=== PATIENT | male | born 1955 | race Caucasian/White ===

== ENCOUNTER 2021-01-16 09:50 | Inpatient (IN) | payer OTHER ==
[~2021-01-16] VITALS: Ht 172.7 cm; Wt 66.7 kg
[2021-01-16] VITALS (77 sets, daily range): BP systolic 134; BP diastolic 80; PULSE 87; TEMP 98.9; O2SAT 82–98
[2021-01-16 10:35] LABS: HEMATOCRIT 49.3 % (42.0-52.0); HEMOGLOBIN 16.8 g/dl (13.5-18.0); MEAN CELL VOLUME 87 fl (80.0-100.0); MEAN CORPUSCULAR HEMOGLOBIN 30 pg (27.0-31.0); MEAN CORPUSCULAR HGB CONC 34 g/dl (33.0-37.0); MEAN PLATELET VOLUME 9.9 fl (7.4-10.4); PLATELET COUNT 349 K/mm3 (130-400); RED BLOOD COUNT 5.64 M/mm3 (4.20-5.60); REDCELL DISTRIBUTION WIDTH-CV 14.7 % (11.5-14.5)
[2021-01-16 11:05] LABS: BAND 3 % (0-10); LYMPHOCYTE 10 % (20.0-51.0); NEUTROPHILS 85 % (42.0-75.2)
[2021-01-16 11:07] LABS: PLATELET ESTIMATE NORMAL (NORMAL)
[2021-01-16 11:16] LABS: COLLECTION METHOD CLEAN CATCH
[2021-01-16 11:16] LABS: ARTERIAL BLD GAS O2 SATURATION 93.5 % (92-100); ARTERIAL BLD GAS TCO2 CT 23.3; ARTERIAL BLOOD GAS BASE EXCESS 0.6 (-2-2); ARTERIAL BLOOD GAS HCO3 22.4 meq/L (22-26); ARTERIAL BLOOD GAS PCO2 29.1 mmHg (35-45); ARTERIAL BLOOD GAS PO2 64.7 mmHg (80-100); ARTERIAL BLOOD GAS pH 7.51 (7.35-7.45)
[2021-01-16 11:29] LABS: MUCOUS Present /lpf; PH 6 (5-8); SQUAMOUS EPITHELIAL None Seen /hpf; URINE APPEARANCE Hazy; URINE BACTERIA None Seen /hpf; URINE BILIRUBIN Negative (NEGATIVE); URINE BLOOD Negative (NEGATIVE); URINE COLOR Amber; URINE GLUCOSE Negative (NEGATIVE); URINE KETONE 1+ (NEGATIVE); URINE LEUKOCYTE ESTERASE Negative (NEGATIVE); URINE NITRATE Negative (NEGATIVE); URINE PROTEIN(semi-quant) 1+ (NEGATIVE); URINE RBC 0-2 /hpf; URINE UROBILINOGEN >=4.0 mg/dL (NEGATIVE)
[2021-01-16 11:37] LABS: ALANINE AMINOTRANSFERASE 55 U/L (4-49); ALBUMIN 2.7 gm/dL (3.5-5.0); ALKALINE PHOSPHATASE 59 U/L (50-136); ANION GAP 4 mmol/L (7-16); AST,SGOT 76 U/L (15-37); BLOOD UREA NITROGEN 16 mg/dL (9-20); CALCIUM 7.1 mg/dL (8.4-10.2); CARBON DIOXIDE 22 mmol/L (22-30); CHLORIDE 109 mmol/L (98-107); CREATININE, serum 0.69 (0.66-1.25); GLUCOSE 97 mg/dL (74-106); POTASSIUM 3.2 mmol/L (3.4-5.0); SODIUM 135 mmol/L (137-145); TOTAL PROTEIN 6.3 gm/dL (6.4-8.2)
[2021-01-16 12:13] LABS: TROPONIN-I < 0.012 ng/mL (0.000-0.035)
[2021-01-16 17:55] LABS: C-REACTIVE PROTEIN 4.2 mg/dL (0.0-0.9); MAGNESIUM 2.2 mg/dL (1.6-2.3)
[2021-01-16 21:27] LABS: ARTERIAL BLD GAS O2 SATURATION 97.2 % (92-100); ARTERIAL BLD GAS TCO2 CT 25.1; ARTERIAL BLOOD GAS BASE EXCESS 1.8 (-2-2); ARTERIAL BLOOD GAS HCO3 24.2 meq/L (22-26); ARTERIAL BLOOD GAS PCO2 31.9 mmHg (35-45); ARTERIAL BLOOD GAS PO2 89.1 mmHg (80-100)
--- NOTE | 2021-01-16 22:10 | NUR ---
CONTACTED PHARMACY FOR A DOSE OF REMDESAVIR, FOR THIS COVID POSITIVE PATIENT/ PHARMACIST STATED THEY COULD NOT BE IN CAUSE DOSES ARE UNDER LOCK AND NO URIBE UNTIL A.M.S ONLY TIMED LOCK
[2021-01-17] VITALS (788 sets, daily range): BP systolic 105–129; BP diastolic 68–89; PULSE 58–92; TEMP 97.6–99; O2SAT 84–100
[2021-01-17 05:19] LABS: HEMATOCRIT 48.2 % (42.0-52.0); HEMOGLOBIN 16.2 g/dl (13.5-18.0); MEAN CELL VOLUME 89 fl (80.0-100.0); MEAN CORPUSCULAR HEMOGLOBIN 30 pg (27.0-31.0); MEAN CORPUSCULAR HGB CONC 34 g/dl (33.0-37.0); MEAN PLATELET VOLUME 9.7 fl (7.4-10.4); PLATELET COUNT 283 K/mm3 (130-400); RED BLOOD COUNT 5.44 M/mm3 (4.20-5.60); REDCELL DISTRIBUTION WIDTH-CV 14.7 % (11.5-14.5)
[2021-01-17 05:32] LABS: ARTERIAL BLD GAS O2 SATURATION 97.4 % (92-100); ARTERIAL BLD GAS TCO2 CT 24.1; ARTERIAL BLOOD GAS BASE EXCESS 0.1 (-2-2); ARTERIAL BLOOD GAS HCO3 23.1 meq/L (22-26); ARTERIAL BLOOD GAS PCO2 33.2 mmHg (35-45); ARTERIAL BLOOD GAS pH 7.46 (7.35-7.45)
[2021-01-17 05:34] LABS: ALBUMIN 3.3 gm/dL (3.5-5.0); BILIRUBIN,TOTAL 0.9 mg/dL (0.0-1.0); CREATININE, serum 0.66 (0.66-1.25); MAGNESIUM 2.5 mg/dL (1.6-2.3); POTASSIUM 4.5 mmol/L (3.4-5.0); TOTAL PROTEIN 7.3 gm/dL (6.4-8.2)
[2021-01-17 05:50] LABS: BAND 1 % (0-10); BASOPHIL 1 % (0-2); LYMPHOCYTE 1 % (20.0-51.0); NEUTROPHILS 89 % (42.0-75.2); PLATELET ESTIMATE NORMAL (NORMAL)
--- NOTE | 2021-01-17 07:15 | NUR ---
Patient resting in bed; alert and oriented and cooperative during assessment. Patient reports breathing feels "better" while wearing the BIPAP. Reported a dry mouth. Assisted to take sips of water; tolerated well. Discussed possibility of eating with Dr. Rivero. Requested that we attempt Airvo for 30 min. If tolerating may have a light snack. VS stable at this time. Call light left within reach; will continue to monitor.
--- NOTE | 2021-01-17 10:45 | NUR ---
Patient had minimal urine out put overnight. Has not voided this shift. Discussed with hospitalist and will initiate IV fluids.
--- NOTE | 2021-01-17 11:08 | NUR ---
I spoke with pt per phone for the following information. Pt currently lives at home alone. He has not been and does not have any children. He has no DPOA established and is not interested at this time of establishing one. His mother is in a shelter at [place] but he does not know which one. Her name is Brenda Paniagua. He has a sister in [place]-Marianela Sarah but he does not have her contact information. He has another sister, Zoya, but he does not know her last name since she got and does not have her contact information. He currently does not have a PCP and has not been seen in a clinic/urgent care in many years. He does not have a pharmacy. Pt requested that I contact his employer-[employer]- and let him know that pt was in the hospital. I called [employer] at [phone] and notified them of pt's admission. Pt has no other living siblings and father in 70's.
--- NOTE | 2021-01-17 20:14 | NUR ---
Assessment complete and charted. Patient has cataract present to left eye. Denies pains. Denies needs. Call light in reach.
[2021-01-18] VITALS (585 sets, daily range): BP systolic 119–146; BP diastolic 74–94; PULSE 62–93; TEMP 97.4–98.7; O2SAT 85–100
[2021-01-18 06:47] LABS: HEMATOCRIT 46.2 % (42.0-52.0); HEMOGLOBIN 15.2 g/dl (13.5-18.0); MEAN CELL VOLUME 91 fl (80.0-100.0); MEAN CORPUSCULAR HEMOGLOBIN 30 pg (27.0-31.0); MEAN CORPUSCULAR HGB CONC 33 g/dl (33.0-37.0); MEAN PLATELET VOLUME 9.4 fl (7.4-10.4); PLATELET COUNT 362 K/mm3 (130-400); RED BLOOD COUNT 5.06 M/mm3 (4.20-5.60); REDCELL DISTRIBUTION WIDTH-CV 14.8 % (11.5-14.5)
[2021-01-18 06:58] LABS: BILIRUBIN,TOTAL 0.6 mg/dL (0.0-1.0); CALCIUM 8.2 mg/dL (8.4-10.2); CREATININE, serum 0.74 (0.66-1.25); MAGNESIUM 2.3 mg/dL (1.6-2.3); POTASSIUM 4.1 mmol/L (3.4-5.0); TOTAL PROTEIN 6.8 gm/dL (6.4-8.2)
--- NOTE | 2021-01-18 07:05 | NUR ---
Patient had uneventful night. Remains on bipap this AM. Call light in reach.
--- NOTE | 2021-01-18 07:27 | NUR ---
Report given to PAM Gaona
[2021-01-18 07:56] LABS: BAND 12 % (0-10); LYMPHOCYTE 8 % (20.0-51.0); NEUTROPHILS 71 % (42.0-75.2); PLATELET ESTIMATE NORMAL (NORMAL)
--- NOTE | 2021-01-18 08:45 | NUR ---
Awake and alert in bed; Denies any shortness of breath or pain. 02 88% on Air vo at 45L 50%. RT at bedside and increased settings to 55L 75%. Currenlty 92%. Provided breakfast tray. Call light left within reach; will continue to monitor.
--- NOTE | 2021-01-18 09:15 | NUR ---
On 01/17/2021, manager social media spoke with patient about durable power of workers compensation attorney for health care and that we were unable to secure location and contact patient's sisters and mother. Patient verbalized understanding the importance of establishing a durable power of workers compensation attorney due to seriousness of his covid illness. Patient stated his friend, Lane Cisse would help him by being his durable power of workers compensation attorney. Worker had [facility] locate Lane and he then called this worker and said he would gladly help patient by becoming the durable power of workers compensation attorney. On 01/17/2021, patient signed a durable power of workers compensation attorney naming Lane Cisse. On this date, worker contacted Lane and advised of the above information. Lane expressed interest in seeing patient if he can ever have visitors.
--- NOTE | 2021-01-18 09:19 | NUR ---
Lane Cisse's phone number is [phone].
--- NOTE | 2021-01-18 18:30 | NUR ---
Transfered up to medical floor on 15L oxymask. 2nd RN transported Airvo. Patient alert and oriented and in no distress upon arrival. Switched to Airvo on previous settings once in medical floor room.
--- NOTE | 2021-01-18 21:07 | NUR ---
Shift assessment completed. Patient alert and oriented. Patient currently on Airvo 55L/75%. Patient denies SOB or dyspnea at this time. Patient denies any pain or discomfort. VS stable. Patient ate 100% of dinner. Denies N/V or diarrhea. All scheduled meds given per AUG. Call light within reach. Will continue to monitor.
[2021-01-19 00:20] VITALS: BP 126/72; PULSE 71; TEMP 98.6
[2021-01-19 03:46] VITALS: BP 122/65; PULSE 69; TEMP 97.9
[2021-01-19 08:00] VITALS: BP 135/71; PULSE 87; TEMP 98.8
[2021-01-19 09:29] LABS: BASO % 0.1 % (0.0-2.0); EOS % 0.1 % (0-4.0); GRAN # 13.8 (1.4-6.5); GRAN % 86.5 % (42.2-75.2); HEMATOCRIT 44.6 % (42.0-52.0); HEMOGLOBIN 14.7 g/dl (13.5-18.0); LYMPH # 1.4 (1.2-3.4); LYMPH % 8.8 % (20.0-51.0); MEAN CELL VOLUME 90 fl (80.0-100.0); MEAN CORPUSCULAR HEMOGLOBIN 30 pg (27.0-31.0); MEAN CORPUSCULAR HGB CONC 33 g/dl (33.0-37.0); MEAN PLATELET VOLUME 9.3 fl (7.4-10.4); MONO # 0.6 (0.1-0.6); MONO % 3.4 % (1.7-9.3); PLATELET COUNT 358 K/mm3 (130-400); RED BLOOD COUNT 4.97 M/mm3 (4.20-5.60); REDCELL DISTRIBUTION WIDTH-CV 14.6 % (11.5-14.5)
[2021-01-19 09:36] LABS: CALCIUM 8.2 mg/dL (8.4-10.2); CREATININE, serum 0.63 (0.66-1.25); POTASSIUM 3.9 mmol/L (3.4-5.0)
--- NOTE | 2021-01-19 10:34 | NUR ---
0700 PT RECEIVED RESTING IN BED. NO S/S OF DISTRESS NOTICED. OXYGEN IN PLACE. PT DENIES HAVING PAIN. COMFORT MEASURES IN PLACE. CALL-LIGHT IN REACH. BED IN LOW POSITION. ISOLATION PRECAUTION MAINTAINED. WILL CONTINUE TO MONITOR. 0800 V/S STABLE. PT ORDERED HIS MEAL. 0900 MEDICATIONS ADMINISTERED ORDERED. PT ATE HIS MEAL. WILL CONTINUE TO MONITOR.
[2021-01-19 12:00] VITALS: BP 143/72; PULSE 94; TEMP 98.8
[2021-01-19 16:00] VITALS: BP 132/66; PULSE 94; TEMP 99
[2021-01-19 20:24] VITALS: BP 130/65; PULSE 94; TEMP 98.9
[2021-01-20 00:34] VITALS: BP 122/78; PULSE 67; TEMP 97.9
[2021-01-20 04:10] VITALS: BP 130/74; PULSE 80; TEMP 98.4
--- NOTE | 2021-01-20 06:24 | NUR ---
PATIENT RESTING IN BED IN NO DISTRESS OXYGEN IN PLACE. DENIES ANY DISCOMFORT. VSS. ISOLATION PRECAUSTION MENTAINED. CALL LIGHT WITHIN REACH. BED LOW AND LOCKED. WILL CONTINUE TO MONITOR.
[2021-01-20 09:19] LABS: HEMATOCRIT 47.6 % (42.0-52.0); HEMOGLOBIN 15.5 g/dl (13.5-18.0); MEAN CELL VOLUME 91 fl (80.0-100.0); MEAN CORPUSCULAR HEMOGLOBIN 30 pg (27.0-31.0); MEAN CORPUSCULAR HGB CONC 33 g/dl (33.0-37.0); MEAN PLATELET VOLUME 9.2 fl (7.4-10.4); PLATELET COUNT 315 K/mm3 (130-400); RED BLOOD COUNT 5.24 M/mm3 (4.20-5.60); REDCELL DISTRIBUTION WIDTH-CV 14.6 % (11.5-14.5)
[2021-01-20 09:20] VITALS: BP 134/61; PULSE 89; TEMP 98.8
--- NOTE | 2021-01-20 09:20 | NUR ---
PT PLEASANT, AOX4, DENIES SOB/N/V/D/PAIN. REPORTS A PRODUCTIVE COUGH. MEDICATIONS GIVEN, ICE WATER BROUGHT IN FOR PT, PT ATE BREAKFAST, ASSESSMENT PERFORMED, NO OTHER NEEDS.
[2021-01-20 09:34] LABS: BILIRUBIN,TOTAL 0.6 mg/dL (0.0-1.0); CALCIUM 8.2 mg/dL (8.4-10.2); CREATININE, serum 0.7 (0.66-1.25); MAGNESIUM 2.1 mg/dL (1.6-2.3); POTASSIUM 3.9 mmol/L (3.4-5.0); TOTAL PROTEIN 7.1 gm/dL (6.4-8.2)
[2021-01-20 10:53] LABS: BAND 1 % (0-10); LYMPHOCYTE 8 % (20.0-51.0); NEUTROPHILS 89 % (42.0-75.2)
[2021-01-20 10:54] LABS: HYPOCHROMIA 1+; PLATELET ESTIMATE NORMAL (NORMAL)
[2021-01-20 12:13] VITALS: BP 122/98; PULSE 95; TEMP 98.6
[2021-01-20 16:15] VITALS: BP 142/75; PULSE 99; TEMP 97.6
--- NOTE | 2021-01-20 18:10 | NUR ---
PT PLEASANT, AOX4, TOOK ALL MEDICATION, VITALS TAKEN, NO OTHER NEEDS, ON AIRVO, TOLERATING IT WELL
[2021-01-20 19:46] VITALS: BP 110/66; PULSE 84; TEMP 98.1
--- NOTE | 2021-01-20 21:04 | NUR ---
PATIENT ASSESSED. RESTING IN BED REPORT FEELING BETTER TODAY. CONTINUE ON AIRVO, NO RESPIRATORY DISTRESS NOTED. DENIES PAIN OR ANY DISCOMFORT. CALL WITHIN REACH. BED LOW AND LOCKED. NO CONCERN AT THIS TIME. WILL CONTINUE TO MONITOR.
[2021-01-21] VITALS (7 sets, daily range): BP systolic 114–136; BP diastolic 65–76; PULSE 65–103; TEMP 97.9–98.6
--- NOTE | 2021-01-21 06:46 | NUR ---
PT AWAKE IN BED WITH AIRVO IN PLACE. REQUESTING FOR URINAL TO BE EMPTIED
--- NOTE | 2021-01-21 07:24 | NUR ---
PT PLEASANT, AOX4, DENIES PAIN/SOB, ASSESSMENT PERFORMED, VITALS TAKEN, MEDICATIONS GIVEN, FRESH ICE WATER BROUGHT IN, BREAKFAST ORDERED, NO OTHER NEEDS
--- NOTE | 2021-01-21 17:08 | NUR ---
PT AOX4, PLEASANT, REPORTS FEELING MUCH BETTER, INDEPENDENT IN ROOM, PT REPORTS ONLY FEELING SOB FOR A COUPLE MINUTES BEFORE RETURNING TO BASELINE, REMDESIVIR GIVEN WITH OTHER MEDICATIONS. PT DENIES PAIN/N/V/D. PT HAS GOOD ORAL INTAKE, NO OTHER NEEDS
--- NOTE | 2021-01-21 20:30 | NUR ---
Initial shift assessment done- denies pain, Denies SOB when in rest- states has SOB with exertion. On Airvo 50L/63%. Pleasant, alert/oriented- states feels like he is getting better, snack given, no other requests. VSS
[2021-01-22 04:30] VITALS: BP 129/72; PULSE 73; TEMP 98.1
--- NOTE | 2021-01-22 04:51 | NUR ---
Quiet night- no requests, denies pain at this time-seems in good spirits,talkative. VSS, sats 94-95% on Airvo
[2021-01-22 07:27] VITALS: BP 127/74; PULSE 90; TEMP 98.7
--- NOTE | 2021-01-22 11:10 | NUR ---
Scheduled medications given. Shift assessment preformed. Patient currently requiring 55L of O2 via airvo. Patient A&O. Denies and pain, discomfort, N/V/D, or further needs at this time. VSS. Call light in reach.
[2021-01-22 11:21] VITALS: BP 121/74; PULSE 93; TEMP 98.9
--- NOTE | 2021-01-22 11:38 | NUR ---
The patient remains on 50 liters of oxygen, via airvo. GENE contacted the patient to follow up. The patient states that he is doing okay. He states that his friend, Lane, will be coming up here to excelsior picker his keys. GENE notified the patient's RN. GENE to continue to follow.
[2021-01-22 16:00] VITALS: BP 130/71; PULSE 90; TEMP 98.3
--- NOTE | 2021-01-22 19:34 | NUR ---
Patient had an ok day. Patient still requiring 50 L of O2 via airvo. Patient has denies any pain, discomfort, N/V/D, and is afebrile. Denies any further needs at this time. VSS. Call light in reach.
[2021-01-22 20:51] VITALS: BP 125/81; PULSE 90; TEMP 97.7
[2021-01-22 23:52] VITALS: BP 133/88; PULSE 81; TEMP 97.8
[2021-01-23 03:50] VITALS: BP 123/71; PULSE 76; TEMP 97.6
[2021-01-23 07:02] LABS: BASO % 0.2 % (0.0-2.0); GRAN # 9.2 (1.4-6.5); GRAN % 83.6 % (42.2-75.2); HEMATOCRIT 48.2 % (42.0-52.0); HEMOGLOBIN 15.6 g/dl (13.5-18.0); LYMPH # 1.1 (1.2-3.4); LYMPH % 9.8 % (20.0-51.0); MEAN CELL VOLUME 91 fl (80.0-100.0); MEAN CORPUSCULAR HEMOGLOBIN 30 pg (27.0-31.0); MEAN CORPUSCULAR HGB CONC 32 g/dl (33.0-37.0); MEAN PLATELET VOLUME 9.5 fl (7.4-10.4); MONO # 0.6 (0.1-0.6); MONO % 5.6 % (1.7-9.3); PLATELET COUNT 346 K/mm3 (130-400); RED BLOOD COUNT 5.29 M/mm3 (4.20-5.60); REDCELL DISTRIBUTION WIDTH-CV 14.5 % (11.5-14.5)
[2021-01-23 07:20] LABS: C-REACTIVE PROTEIN 1.1 mg/dL (0.0-0.9); CALCIUM 8.2 mg/dL (8.4-10.2); CREATININE, serum 0.65 (0.66-1.25); MAGNESIUM 2.1 mg/dL (1.6-2.3)
--- NOTE | 2021-01-23 09:26 | NUR ---
Pt awake upon entry to room, talkative. No C/O pain at this time. Shift assessments complete, left Pt call light in reach, bed in lowest position.
[2021-01-23 09:53] VITALS: BP 132/75; PULSE 91; TEMP 97.9
[2021-01-23 13:01] VITALS: BP 134/78; PULSE 95; TEMP 97.9
[2021-01-23 17:21] VITALS: BP 120/72; PULSE 93; TEMP 98.3
--- NOTE | 2021-01-23 20:21 | NUR ---
PT RESTING COMFOTABLY IN BED. PT ON AIRVO 40L/55%. EVENING MEDICATIONS GIVEN. PT HAS NO COMPLAINTS OF PAIN AT THIS TIME. STOMACH APPEARS DISTENDED AND FIRM. BOWEL SOUNDS ACTIVE IN ALL FOUR QUADRANTS. LUNG SOUNDS OF COARSE CRACKLES UPON AUSCULTATION. CALL LIGHT WITHIN REACH. WILL CONTINUE TO MONITOR.
[2021-01-23 20:27] VITALS: BP 138/73; PULSE 106; TEMP 98
[2021-01-24] VITALS (7 sets, daily range): BP systolic 123–139; BP diastolic 71–81; PULSE 17–97; TEMP 97.5–98.2
[2021-01-24 07:11] LABS: C-REACTIVE PROTEIN 0.9 mg/dL (0.0-0.9); CALCIUM 8.2 mg/dL (8.4-10.2); CREATININE, serum 0.69 (0.66-1.25); MAGNESIUM 2.2 mg/dL (1.6-2.3)
--- NOTE | 2021-01-24 08:27 | NUR ---
Pt awake upon entry, no C/O pain at this time. Talkative. Currently on high flow nasal canula @ 6 LPM. Shift assessment complete, left Pt call light in reach, needs met.
[2021-01-25 04:25] VITALS: BP 127/69; PULSE 87; TEMP 97.9
[2021-01-25 08:00] VITALS: BP 123/72; PULSE 111; TEMP 97.7
--- NOTE | 2021-01-25 08:00 | NUR ---
Patient sitting up in bed watching TV. A&Ox4. VSS 3L NC O2, no reported SOB. IV CDI. Denies pain and discomfort. Is hoping to go home today. Droplet/contact precautions in place. Call light within reach
[2021-01-25] MEDS ORDERED: RT Albuterol HFA MDI IH (11:00)
--- NOTE | 2021-01-25 15:29 | NUR ---
The hospitalist is ready to d/c the patient today. An exercise oximetry was ordered. RT notified SW that the patient qualified for 4 liters of oxygen with ambulation. SW contacted the patient to inform and review d/c plan. The patient is self pay and will need to go through [facility] for the oxygen. The patient was agreeable to this. The patient reports that he will also need a ride home. The patient is COVID positive and not out of isolation yet. The patient reports that he has no friends or family that can come and get him. The patient reports that he does not have a PCP. He is self pay and states that he cannot afford to private pay up front a clinic. SW discussed the [facility] in [facility]. The patient was agreeable to getting set up at [facility]. He states that he has a scooter, so he would need to get set up in [place]. [facility] in [place] has already closed for the day. SW informed the patient that SW will contact them on Thursday and secure him an appointment. The patient states that he does not have a phone right now, but will be getting one on Thursday. He requests that SW contact his friend/DPOA-HC, Lane, with the appointment time. SW inquired about affording his medications. The patient would like his presciptions sent to [facility] and he states that he can afford them. He reports that Lane will be picking them up for him. He asked that SW contact [facility] to let them know. SW notified [facility] and they report that Lane will be able to pharmacy picking tech the patient's meds. SW contacted Lane and reviewed the above information. Lane confirms that he will pharmacy picking tech the patient's prescriptions and bring them to the patient. He states that SW can contact him on Thursday with the patient's appointment at [facility] and he will let the patient know. GENE contacted [facility] and secured the patient a ride home at 1530, which will be billed to the hospital. GENE collaborated the time with Boo at [facility]. SW faxed and emailed the oxygen order to Talia at [facility]. Boo, at [facility], delivered a portable tank to the patient's room. GENE updated the patient's RN on the above. The patient is to discharge back home today, 01/25. Transportation provided by [facility].
--- NOTE | 2021-01-25 16:16 | NUR ---
Discharge paperwork reviewed with the patient. Patient verbalized an understanding to follow discharge orders and isolation protocols. IV removed, tip intact, gauze and coban applied. Personal belongings with the patient. Waiting on EMS to transport the patient home. Call light within reach
--- NOTE | 2021-01-25 16:50 | NUR ---
Patient transfered by EMS home. Discharge paperwork and personal belongings with the patient. No further needs expressed.
--- NOTE | 2021-01-28 09:31 | NUR ---
GENE contacted Clotilde at [facility] in [place] to schedule the follow up appointment. Clotilde reports that the patient would be a new patient and that the earliest they could see him would be late March. GENE contacted Tonio at [facility] and provided him with the patient's information, along with Lane's phone number. Tonio reports that they will get in contact with Lane to schedule the patient an appointment with them. [facility] states that they can get the patient in fairly soon. GENE faxed the patient's records to [facility]. GENE contacted and updated the patient's DPOA-HC/friend, Lane, on the above. Lane is in agreement to the plan and states that he will let the patient know the appointment.
== END 2021-01-25 16:50 | disposition home or self-care (01) | DRG 177 ==
LOC: COL.ER 09:50 → ICU 16:41 → MEDICAL 16:41 → ICU 01-18 16:35 → MEDICAL 01-18 17:01
PROVIDERS: Internal Medicine; Internal Medicine Pulmonary Disease; Nurse Practitioner Family; Personal Emergency Response Attendant; Physician Assistant; ADMIT Family Medicine
PROC: XW033E5 Introduction of Remdesivir Anti-infective into Peripheral Vein, Percutaneous Approach, New Technology Group 5 (ICD-10-PCS; principal; 2021-01-16)
DX: U07.1 COVID-19 (principal); J12.82 Pneumonia due to coronavirus disease 2019; J96.01 Acute respiratory failure with hypoxia; E87.6 Hypokalemia; R74.01 Elevation of levels of liver transaminase levels; F12.90 Cannabis use, unspecified, uncomplicated; Z87.891 Personal history of nicotine dependence
CPT/HCPCS: 99223-AI; 99233-AI; 99238; A9284; J0696; J1100; J1650; J3480; J7030; J7050; J8540; Q9967

== ENCOUNTER → 2021-04-11 | Outpatient (CLI) | payer OTHER ==
[~2021-04-11] MED LIST: RT Albuterol HFA MDI IH
== END ==
LOC: COL.VAS 14:14
DX: R06.02 Shortness of breath (principal)

== ENCOUNTER 2023-12-17 10:40 | Emergency (ER) | payer OTHER ==
[~2023-12-17] VITALS: Ht 172.7 cm; Wt 77.3 kg
[~2023-12-17 10:40] MED LIST changes: +AMOXICILLIN 8751 TAB PO; +CEFTIN500 MG PO; +NORCO 325 MG-51 TAB PO
[2023-12-17 14:53] VITALS: BP 183/82; TEMP 97.8
[2023-12-17] MEDS ORDERED: VOLTAREN 75 DR75 MG PO (15:38)
[2023-12-17 16:05] VITALS: PULSE 64
== END 2023-12-17 16:05 | disposition home or self-care (01) ==
LOC: COL.ER 10:40
DX: M19.09 Primary osteoarthritis, other specified site (principal)